=== PATIENT | female | born 1995 | race Caucasian/White ===

== ENCOUNTER 2016-10-04 16:47 | Emergency (ER) | payer BC, OTHER ==
--- NOTE | 2016-10-04 17:35 | EDM.PDOC ---
ED HPI GENERAL MEDICAL PROBLEM - General Chief Complaint: STUDENT TEACHER Problem Stated Complaint: PT HAS STOMACH PAIN Time Seen by Provider: 10/04/16 17:20 Source of Information: Reports: Patient History Limitations: Reports: No Limitations - History of Present Illness INITIAL COMMENTS - FREE TEXT/NARRATIVE: HISTORY AND PHYSICAL: History of present illness: [Patient comes to the emergency room complaining of right lower quadrant abdominal pain. She was evaluated for this at the [facility] yesterday and was told that she likely has a ovarian cyst. Her CBC, CMP, urinalysis are reviewed from yesterday and are normal. She had her Mirena removed yesterday as she felt that it was causing her discomfort. Was prescribed OC's which she hasn' t yet started. She feels that her pain has improved mildly from yesterday, but it continues. Has not had significant relief with diclofenac. Remains afebrile. Pain has not moved or changed, or than to slightly improve. She reports that her stepfather is an STUDENT TEACHER in [place] and he wants her to have a pelvic ultrasound.] Review of systems: As per history of present illness and below otherwise all systems reviewed and negative. Past medical history: As per history of present illness and as reviewed below otherwise noncontributory. Surgical history: As per history of present illness and as reviewed below otherwise noncontributory. Social history: No reported history of drug or alcohol abuse. Family history: As per history of present illness and as reviewed below otherwise noncontributory. Physical exam: HEENT: Atraumatic, normocephalic. Lungs: Clear to auscultation, breath sounds equal bilaterally. Heart: S1S2, regular rate and rhythm. Abdomen: Overweight, soft, nondistended. Is TTP over RLQ. No guarding or rebound. Negative for masses or hepatosplenomegaly. Negative for costovertebral tenderness. Genitourinary: Deferred. Rectal: Deferred. Extremities: Atraumatic, and ambulatory without deficit. Neurovascular unremarkable. Neuro: Awake, alert, oriented. Motor and sensory unremarkable throughout. Exam nonfocal. Diagnostics: [pelvic U/S] Impression: [RLQ abdominal pain] Plan: [Discussed with patient that ultrasound shows small amount of free fluid but no ovarian cysts, uterine masses, or abnormalities. Discussed with her that since her pain has improved she may have had a cyst that ruptured prior to coming to the ER. Gave patient the option of repeating labs that were drawn yesterday. Due to her nontoxic appearance and that she remains afebrile this may not be necessary at this time but certainly is an option if she desires. Patient declines repeat labs at this time. She is given an Rx for tramadol 50mg (#6) sig : 1 po q 4-6 hours prn pain 0 RF's. Encouraged her to establish and follow up with a local PCP. Strict return precautions are discussed. ] Definitive disposition and diagnosis as appropriate pending reevaluation and review of above. Bilateral Pelvic Pain Score (Numeric/FACES): 5 - Related Data Allergies Allergy/AdvReac Type Severity Reaction Status Date / Time shellfish Allergy Hives Uncoded 10/04/16 17:23 Home Meds: Home Meds Diclofenac Sodium [Voltaren] 50 mg TID PRN 10/04/16 [History] Ibuprofen [Advil] PRN 10/04/16 [History] Past Medical History - Past Health History Medical/Surgical History: Denies Medical/Surgical History Social & Family History - Tobacco Use Smoking Status *Q: Light Tobacco Smoker Years of Tobacco use: 1 Packs/Tins Daily: 0.2 - Caffeine Use Caffeine Use: Reports: Soda - Recreational Drug Use Recreational Drug Use: No ED ROS GENERAL - Review of Systems Review Of Systems: ROS reveals no pertinent complaints other than HPI. ED EXAM, GI/ABD - Physical Exam Exam: See Below Course - Vital Signs Last Recorded V/S: Last Vital Signs Temp 97.4 F 10/04/16 19:11 Pulse 74 10/04/16 19:11 Resp 14 10/04/16 19:11 BP 126/79 10/04/16 19:11 Pulse Ox 96 10/04/16 19:11 - Orders/Labs/Meds Orders: Active Orders 24 hr Category Date Time Status Pelvis Non OB Comp [US] Stat Exams 10/04/16 17:43 Taken Labs: Laboratory Tests 10/04/16 Range/Units 17:50 Urine HCG, Qual NEGATIVE (NEGATIVE) Departure - Departure Time of Disposition: 19:50 Disposition: Home, Self-Care 01 Condition: Good Clinical Impression: Abdominal pain Qualifiers: Abdominal location: right lower quadrant Qualified Code(s): R10.31 - Right lower quadrant pain - Discharge Information Instructions: Ovarian Cyst, [id number] Referrals: PCP,None [Primary Care Provider] - Forms: ED Department Discharge Additional Instructions: The following information is given to patients seen in the emergency department who are being discharged to home. This information is to outline your options for follow-up care. We provide all patients seen in our emergency department with a follow-up referral. The need for follow-up, as well as the timing and circumstances, are variable depending upon the specifics of your emergency department visit. If you don't have a primary care physician on staff, we will provide you with a referral. We always advise you to contact your personal physician following an emergency department visit to inform them of the circumstance of the visit and for follow-up with them and/or the need for any referrals to a consulting specialist. The emergency department will also refer you to a specialist when appropriate. This referral assures that you have the opportunity for follow-up care with a specialist. All of these measure are taken in an effort to provide you with optimal care, which includes your follow-up. Under all circumstances we always encourage you to contact your private physician who remains a resource for coordinating your care. When calling for follow-up care, please make the office aware that this follow-up is from your recent emergency room visit. If for any reason you are refused follow-up, please contact the [facility] emergency department at and asked to speak to the emergency department charge nurse. [address] [address] Establish care and follow-up with local primary care provider at the clinic listed above in 48-72 hours. Continue prescribed medications. Return to ER as needed as discussed. - My Orders Last 24 Hours: My Active Orders 10/04/16 17:43 Pelvis Non OB Comp [US] Stat - Assessment/Plan Last 24 Hours: My Active Orders 10/04/16 17:43 Pelvis Non OB Comp [US] Stat
[2016-10-05 05:36] VITALS: BP 127/87
--- NOTE | 2016-10-05 09:18 | US ---
EXAM DATE: 10/04/16 PATIENT'S AGE: 21 Patient: MONIKA GOINS Facility: [place], [place] Site . Site : 1995 Study: US Pelvis [id number]/20/2017 6:55:57 PM Ordering Physician: Doctor Jordan Final Report: INDICATION: Pain. Status post IUD removal 10/03/2016 TECHNIQUE: Ultrasound pelvis transabdominal and transvaginal for better assessment or to better visualize the endometrium. Real time sonographic images with Spectral and color Doppler imaging of the ovaries were obtained. COMPARISON: None FINDINGS: Uterus: 8.2 centimeters x 5.3 centimeters x 3.3 centimeters. Normal echotexture of the myometrium. No masses. Endometrium: Transvaginal imaging was performed to better evaluate the endometrium. 5 mm in thickness. No sign of endometrial mass or fluid. Right ovary: 3.5 centimeters x 1.9 centimeters x 2.5 centimeters. No ovarian or adnexal masses. Normal arterial and venous blood flow. Left ovary: 4.5 centimeters x 3.0 centimeters x 2.8 centimeters. No ovarian or adnexal masses. Normal arterial and venous blood flow. Cul-de-sac: Small amount of free fluid. IMPRESSION: Small amount of free fluid in the cul-de-sac, otherwise unremarkable pelvic ultrasound. Dictated by Son De Los Santos MD @ 10/04/2016 7:31:41 PM Dictated by: Son De Los Santos MD @ 10/04/2016 19:31:53 (Electronic Signature) Report Signed by Proxy. RIDGE
== END 2016-10-04 20:00 | disposition home or self-care (01) ==
LOC: MW.ED 16:47
DX: R10.31 Right lower quadrant pain (principal); F17.210 Nicotine dependence, cigarettes, uncomplicated; Z91.013 Allergy to seafood
CPT/HCPCS: 76856; 76856-26; 81025; 99283; 99284-25